=== PATIENT | male | born 1945 | race Caucasian/White ===

== ENCOUNTER 2017-03-06 06:46 | Day surgery (SDC) | payer OTHER ==
[~2017-03-06] VITALS: Ht 175.3 cm; Wt 112.0 kg
[~2017-03-06 06:46] MED LIST: ACET-2178 PO; ALLO100T PO; ALPHA-LIPOIC ACID PO; ASPI-1159 PO; ATOR-2 PO; B COMPLEX PO; CALTRATE PO; CELE200C PO; CHOL500010 PO; COENZYME Q10 PO; COLC0.6T2 PO; DEXT15DR5 EACHEYE; DIGO125T82 PO; DOCU-138 PO; DUCOLAX RC; DULO60CA44 PO; ELOCON CREAM TOP; FENO134C PO; FISH1CAP38 PO; FLEET ENEMA RC; FLUT16SP15 BOTHNSTRLS; FURO80TA3 PO; GABA-531 PO; HUMULIN R INSULIN SUBCUT; LOSA100T14 PO; LUTEIN PO; MAALOX PO; MAGN400T26 PO; METO50TA5 PO; MILK OF MAGNESIA PO; PROBIOTIC PO; TOUJEO SOLOSTAR PEN SQ; TRAM50TA3 PO; [UNRECOGNIZED DRUG - MIXTURE] BOTHEYE
[2017-03-06] MEDS ORDERED: SODIUM CHLORIDE 0.9% 1,000 ML IV SCH (07:30)
[2017-03-06] MEDS ORDERED: GELATIN SPONGE,ABSORBABLE SZ 100 ONE (07:49)
[2017-03-06] MEDS ORDERED: LIDOCAINE HCL 1% 20ML VIAL (Pyxis) INJ ONE ×2 (07:50→09:28)
[2017-03-06] MEDS ORDERED: BACITRACIN ZINC 15GM TUBE TOP ONE (07:50)
[2017-03-06] MEDS ORDERED: NORMAL SALINE 0.9% 10 ML SYR ONE (07:50)
[2017-03-06] MEDS ORDERED: THROMBIN (BOVINE) 5000 UNITS/VIAL TOP ONE (07:50)
[2017-03-06] MEDS ORDERED: BUPIVACAINE HCL/PF 0.5% (5MG/ML) 10ML ONE (07:50)
[2017-03-06] MEDS ORDERED: BACITRACIN 50,000 UNITS/VIAL ONE (07:51)
[2017-03-06] MEDS ORDERED: SKIN ADHESIVE 0.7 GM EA TOP ONE (08:33)
[2017-03-06] MEDS ORDERED: MIDAZOLAM HCL 2 MG/2 ML VIAL ONE (09:15)
[2017-03-06] MEDS ORDERED: FENTANYL CITRATE/PF 50MCG/ML 2ML VIAL ONE (09:15)
[2017-03-06] MEDS ORDERED: ONDANSETRON HCL 4MG/2ML VIAL ONE (09:16)
[2017-03-06] MEDS ORDERED: DEXAMETHASONE 4MG/ML 1ML VIAL ONE (09:16)
[2017-03-06] MEDS ORDERED: CEFAZOLIN SODIUM 1000MG/VIAL ONE (09:28)
[2017-03-06] MEDS ORDERED: PROPOFOL 200MG/20ML VIAL IV ONE (09:28)
[2017-03-06] MEDS ORDERED: SODIUM CHLORIDE 0.9% 10ML VIAL ONE (09:28)
[2017-03-06] MEDS ORDERED: ONDANSETRON HCL 4MG/2ML VIAL IV PRN (10:15)
[2017-03-06] MEDS ORDERED: IBUPROFEN 400MG TABLET PO PRN (10:15)
[2017-03-06] MEDS ORDERED: MEPERIDINE HCL/PF 25MG/ML CPJ IV PRN (10:15)
[2017-03-06] MEDS ORDERED: HYDROMORPHONE HCL/PF 2MG/ML CPJ IV PRN (10:15)
[2017-03-06] MEDS ORDERED: LABETALOL HCL 20MG/4ML CARPUJECT IV PRN (10:15)
== END 2017-03-06 13:00 | disposition home or self-care (01) ==
LOC: OR 06:46
PROVIDERS: ATTEND Surgery Vascular Surgery
DX: I11.0 Hypertensive heart disease with heart failure (principal); I50.9 Heart failure, unspecified; E11.9 Type 2 diabetes mellitus without complications; E74.9 Disorder of carbohydrate metabolism, unspecified; E78.5 Hyperlipidemia, unspecified; M10.9 Gout, unspecified; E66.09 Other obesity due to excess calories; Z98.52 Vasectomy status
CPT/HCPCS: 0268T; 71010; 82962; 93005; A4216; G0168; J0690; J1100; J2250; J2405; J3010; J3490; J7030; J2704